=== PATIENT | female | born 1985 | race Caucasian/White ===

== ENCOUNTER 2023-12-07 13:41 | Emergency (ER) | payer BC, SELFPAY ==
[2023-12-07 13:48] VITALS: BP 135/87
[2023-12-07 14:02] LABS: % Basophils 0.5 % (0-2); % Eosinophils 0.4 % (0-6); % Immature Granulocytes 0.2 % (0-0.5); % Lymphocytes 27.1 % (20.5-51.1); % Monocytes 5.6 % (1.7-9.3); % Neutrophils 66.2 % (42.2-75.2); Absolute Basophils 0.1 10^3/uL (0-0.2); Absolute Lymphocytes 2.5 10^3/uL (1.2-3.4); Absolute Monocytes 0.5 10^3/uL (0.1-0.6); Absolute Neutrophils 6.2 10^3/uL (1.4-6.5); Hematocrit 34.6 % (37.0-47.0); Hemoglobin 11.2 g/dL (12.0-16.0); Mean Corp Hgb Conc. 32.4 g/dL (33.0-37.0); Mean Corpuscular Hgb 29.2 pg (27.0-31.0); Mean Corpuscular Volume 90.3 fL (81.0-99.0); Mean Platelet Volume 10.2 fL (7.4-10.4); Nucleated Red Blood Cells % 0 %; Platelet Count 317 10^3/uL (130-400); Red Blood Cell Count 3.83 10^6/uL (4.20-5.40); Red Cell Dist. Width 14.1 % (11.5-14.5); White Blood Cell Count 9.3 10^3/uL (4.8-10.8)
[2023-12-07 14:22] LABS: ALT (SGPT) 15 U/L (0-35); AST (SGOT) 19 U/L (14-36); Albumin 4.5 g/dl (3.5-5.0); Alkaline Phosphatase 81 U/L (38-126); Blood Urea Nitrogen 12 mg/dl (7-17); Calcium 9.8 mg/dl (8.4-10.2); Carbon Dioxide 23 mmol/L (22-30); Chloride 105 mmol/L (98-107); Glucose 111 mg/dl (70-99); Potassium 3.9 mmol/L (3.5-5.1); Sodium 138 mmol/L (135-145); Total Bilirubin 0.5 mg/dl (0.2-1.3); Total Protein 7.3 g/dl (6.3-8.2); eGFR > 60.00
[2023-12-07 15:03] LABS: Beta HCG Quantitative 98.77 mIU/ml
--- NOTE | 2023-12-07 18:11 | ED.GENMED ---
History of Present Illness
General
Chief Complaint: Problems
Source: patient
Time Seen by Provider: 12/07/23 18:03
Travel History
Have you had any contact with someone who has COVID-19?: No
Do you have any symptoms of coronavirus? Fever > 100 degrees, chills, cough, shortness of breath, sore throat, loss of taste or smell, muscle aches, or headache?: No
History of Present Illness
History of Present Illness:
38-year-old female, G3, P1, 1 previous miscarriage presenting to the emergency department for evaluation after she states she was late for her menstrual period by 3 days about 2-1/2 weeks ago, took a test and thought that there may be a
faintly positive line but then approximately 3 to 4 days later started her menstrual which she states was her usual flow and duration of 4 days. Patient felt fine although started to have some lower abdominal cramping and spotting so took a another
test and states that the test did come back positive this time. Over the last 24 to 48 hours she has had more lower abdominal cramping and bleeding with pain now more so on the right side of her abdomen prompting her to come to
the ER for further evaluation. She denies any fevers, chills, rigors, urinary symptoms, bowel changes or any other concerns. Patient follows with her [facility] at [facility].
Past History
Past History
ED Past Medical History: GERD
ED Past Surgical History: None
Social History
Tobacco: Non-smoker
Alcohol: None
Drug: None
Personal:
Living: with family
Review of Systems
Review of Systems
All Other Systems: ROS reviewed and negative except as documented in HPI and ROS
Phy Exam
Physical Exam
Physical Exam:
GENERAL: Alert , in no apparent distress
EYE: clear conjunctiva b/l
HEAD: NCAT
ENT: mmm.
CARDIAC: Regular rate and rhythm .
LUNGS: Clear breath sounds bilaterally, no acute respiratory distress, no wheezes/rales/rhonchi
ABDOMEN: Soft, without focal tenderness, no r/g, no cvat
NEUROLOGICAL: Alert and oriented
SKIN: Warm and dry, skin intact.
MUSCULOSKELETAL: well perfused.
PSYCH: Normal and appropriate interaction.
Scores
Heart Failure Risk
Heart Failure Risk Score: Not Applicable
Heart Score for Chest Pain Patients
STEMI patient?: Not applicable
Withdrawal Assessment of Alcohol
Withdrawal Assessment Completed?: Not applicable
Course
Orders/Labs/Results
Orders:
Orders
12/07/23 13:56
Complete Blood Count/With Diff Urgent
Comprehensive Metabolic Panel Urgent
HCG,SERUM [Beta HCG Quantitative] Urgent
Is this a screen?: No
Abnormal Lab Results
12/07/23
13:56
RBC 3.83 L 10^6/uL
(4.20-5.40)
Hgb 11.2 L g/dL
(12.0-16.0)
Hct 34.6 L %
(37.0-47.0)
MCHC 32.4 L g/dL
(33.0-37.0)
Glucose 111 H mg/dl
(70-99)
12/07/23 13:56
12/07/23 13:56
Vital Signs
Initial and Last Documented VS:
Initial Vital Signs
Temp Pulse Resp BP Pulse Ox
98.6 F 78 18 135/87 100
12/07/23 13:48 12/07/23 13:48 12/07/23 13:48 12/07/23 13:48 12/07/23 13:48
Last Documented Vital Signs
Temp Pulse Resp BP Pulse Ox
98.6 F 78 18 135/87 100
12/07/23 13:48 12/07/23 13:48 12/07/23 13:48 12/07/23 13:48 12/07/23 13:48
Information
Weeks gestation: N/A
Location: N/A
MDM/Problems Addressed
Differential Diagnosis Includes:
Threatened miscarriage, ectopic , implantation bleeding
MDM/Problems Addressed:
38-year-old female presenting to the emergency department for evaluation of lower abdominal pain and bleeding after positive test at home. Labs were ordered from triage and reveal a very mild anemia and an hCG level of less than 100.
Patient's abdominal exam is reassuring and without any localized tenderness. Based off of patient's hCG being minimally elevated I do not feel an ultrasound would likely alter patient's management. Explained to patient that she would need a repeat
hCG level in 48 hours and I provided patient with a prescription for this. I also encourage patient to contact her [employer] for close follow-up. Patient is aware of return precautions for any increased pain, worsening bleeding, fevers or any other
concerns she may have. Patient is otherwise stable for discharge home and aware of return precautions.
*Pulse Oximetry
Patient hypoxic: no
*Critical Care Note
Total Time (30-74mins, 75-104mins- exclusive of procedures): Not Applicable
Data Reviewed
Further Testing Considered But Not Given:
US of the pelvis but given HCG level did not feel this would reveal any pathologies that would change patients disposition
ED Attending Note
-
Portions of this chart may have been created with voice recognition software.� Occasional wrong word or��sound alike� substitutions may have occurred due to the inherent limitations of voice recognition software.
Discharge Plan
Departure
Patient Disposition: Home (Routine Discharge)
Date of Disposition: 12/07/23
Time of Disposition: 18:11
Patient with high blood pressure during this ER visit?: No
Discharge Problem:
Threatened
Instructions: Threatened Miscarriage (DC)
Referrals:
NONE,* [Family Provider] -
Activity Restrictions/Additional Instructions:
You need to have your Beta-HCG hormone level repeated in 48 hours. Please contact your OBGYN for a follow up visit. Return to the ER with any worsening symptoms, pain, fevers, or syncope.
Interventions
Interventions:
*Risk Screen - Suicide Last Done: 12/07/23 18:00
*Neglect/Abuse Screening Last Done: 12/07/23 18:00
ED- Fall Risk Assessment Last Done: 12/07/23 18:00
*ED COVID-19 Vaccine History Last Done: 12/07/23 13:49
*Nursing Disposition Last Done: 12/07/23 18:30
ED-Female Genitourinary Assessment Last Done: 12/07/23 18:00
Discharge Date and Time
Discharge Date/Time: 12/07/23 18:30
Print Language: [place]
== END 2023-12-07 18:30 | disposition home or self-care (01) ==
LOC: EMR 13:41
PROVIDERS: Emergency Medicine; EMERGENCY PHYSICIAN Emergency Medicine
DX: O20.0 Threatened abortion (principal); D64.9 Anemia, unspecified; Z3A.00 Weeks of gestation of pregnancy not specified
CPT/HCPCS: 99283; 80053; 84702; 85025